=== PATIENT | female | born 1965 | race Caucasian/White ===

== ENCOUNTER → 2022-06-30 | Outpatient (CLI) | payer BC ==
[2022-06-30 08:06] LABS: EOSINOPHILS % 7.8 % (0.0-5.0); HEMATOCRIT. 41.3 % (36.0-48.0); HEMOGLOBIN. 13.5 g/dL (12.0-16.0); LYMPHOCYTES % 35.3 % (20.0-50.0); MEAN CORPUSCULAR HEMOGLOBIN 29.2 pg (28.0-32.0); MEAN CORPUSCULAR VOLUME 89.3 fL (81.0-99.0); MEAN PLATELET VOLUME 8.4 fl (7.4-10.4); MONOCYTES % 7.2 % (2.0-8.0); NEUTROPHILS % 48.7 % (40.0-76.0); PLATELET 204 x1000/uL (130-400); RED BLOOD CELL COUNT 4.63 mill/uL (4.2-5.4); RED CELL DISTRIBUTION WIDTH 14.2 % (11.6-14.6)
[2022-06-30 08:09] LABS: CHLORIDE 109 mEq/L (98-107)
[2022-06-30 08:22] LABS: HDL CHOLESTEROL 64 mg/dL (40-59); LDL CHOLESTEROL 107 mg/dL (5-100); T4 FREE 1.12 ng/dL (0.76-1.46)
== END | disposition home or self-care (01) ==
LOC: LAB 07:32
PROVIDERS: ATTEND Specialist
DX: E11.9 Type 2 diabetes mellitus without complications (principal); D64.9 Anemia, unspecified; E55.9 Vitamin D deficiency, unspecified; E78.2 Mixed hyperlipidemia
CPT/HCPCS: 36415; 80053; 80061; 82306; 83036; 84439; 84443; 85025

== ENCOUNTER 2023-01-05 21:03 | Emergency (ER) | payer BC ==
[~2023-01-05] VITALS: Ht 162.6 cm; Wt 73.0 kg
[2023-01-05 22:09] VITALS: BP 127/75; RESP 16; O2SAT 100
[2023-01-05 22:14] VITALS: PULSE 66; TEMP 98.2
[2023-01-05] MEDS ORDERED: GUAI600T26 MT (23:45)
== END 2023-01-06 00:38 | disposition home or self-care (01) ==
LOC: ER 21:03
DX: B34.9 Viral infection, unspecified (principal); E78.00 Pure hypercholesterolemia, unspecified; I10 Essential (primary) hypertension; I25.2 Old myocardial infarction; Z20.822 Contact with and (suspected) exposure to COVID-19
CPT/HCPCS: 99284; 71045; 87426; C9803